=== PATIENT | male | born 1970 | race Caucasian/White ===

== ENCOUNTER 2020-12-10 14:28 | Emergency (ER) | payer OTHER ==
[~2020-12-10] VITALS: Ht 177.8 cm; Wt 90.7 kg
[2020-12-10] MEDS ORDERED: VENTOLIN HFA18 GM INH (14:48)
[2020-12-10] MEDS ORDERED: HYDROCHLOROTHIA25 MG PO (14:49)
[2020-12-10] MEDS ORDERED: BUPRENORPHINE HC8 MG SL (14:50)
== END 2020-12-10 15:45 | disposition home or self-care (01) ==
LOC: ED 14:28
DX: F11.23 Opioid dependence with withdrawal (principal); J45.909 Unspecified asthma, uncomplicated; I10 Essential (primary) hypertension; F17.200 Nicotine dependence, unspecified, uncomplicated; Z79.899 Other long term (current) drug therapy
CPT/HCPCS: 99283